=== PATIENT | female | born 1950 | race Caucasian/White ===

== ENCOUNTER 2017-07-22 01:37 | Emergency (ER) | payer MEDICAID ==
[~2017-07-22] VITALS: Ht 154.9 cm; Wt 64.4 kg
[~2017-07-22 01:37] MED LIST: ABREVA2 GM; ABREVA2 GM TOP; ACETAMINOPHEN325 M1 PO; ADULT LOW DOSE81 MG; ALAVERT10 MG; ARTHRITIS PAIN650 M2 PO; CLONIDINE PO; CYCLOBENZAPRINE10 MG; DESYREL50 MG PO; KEPPRA 500 MG500 M1 PO; L-LYSINE500 M1; LAMICTAL 25 MG25 M1 PO; MOM PO; MULTIVITAMINS PO; NAPROSYN500 MG PO; OMEPRAZOLE 20 M20 M1; PRIMIDONE50 MG PO; PRINZIDE 20-121 EACH PO; ROBITUSSIN15 MG/5 M1 PO; SIMVASTATIN40 MG; SIMVASTATIN40 MG PO; VICODIN 5-5001 EACH PO; VITCB500GO; ZONEGRAN 25 MG25 M1; ZONEGRAN100 MG; ZONEGRAN50 MG; ZONISAMIDE 100100 M1
[2017-07-22] MEDS ORDERED: COLACE100 MG (01:45)
[2017-07-22] MEDS ORDERED: MIRALAX17 GM (01:46)
[2017-07-22 05:46] VITALS: BP 123/57
== END 2017-07-22 05:49 | disposition home or self-care (01) ==
LOC: M.ERS 01:37
DX: S00.83XA Contusion of other part of head, initial encounter (principal); W18.39XA Other fall on same level, initial encounter; Y93.89 Activity, other specified; Y92.89 Other specified places as the place of occurrence of the external cause; Y99.8 Other external cause status

== ENCOUNTER 2019-08-06 10:08 | Inpatient (IN) | payer MEDICAID ==
[~2019-08-06] VITALS: Ht 165.1 cm; Wt 63.5 kg
[~2019-08-06 10:08] MED LIST changes: -ADULT LOW DOSE81 MG; +ADULT LOW DOSE81 MG PO; -ARTHRITIS PAIN650 M2 PO; +COLACE100 MG; -LAMICTAL 25 MG25 M1 PO; +LAMICTAL 25 MG25 MG PO; +MIRALAX17 GM PO; +TYLENOL325 MG PO
[2019-08-06 10:11] VITALS: BP 152/80
[2019-08-06 10:31] LABS: ABSOLUTE BASOPHILS 0.1 thou/uL (0.0-0.2); ABSOLUTE EOSINOPHILS 0.1 thou/uL (0.0-0.7); ABSOLUTE LYMPHOCYTES 1.6 thou/uL (0.8-5.3); ABSOLUTE MONOCYTES 0.6 thou/uL (0.0-1.2); BASOPHILS 0.8 %; HEMOGLOBIN 14.2 gm/dL (12.0-15.0); LYMPHOCYTES 19.1 %; MCH 31.1 pg (26.0-34.0); MCV 94.3 fL (80.0-100.0); MONOCYTES 6.7 %; MPV 8.5 fl. (7.2-11.1); NUCLEATED RBCS 0 /100WBC; PLATELET COUNT* 274 thou/uL (150-400); POLYS 72.4 %; RBC 4.56 mil/uL (4.20-5.00); RDW-CV 12.9 % (10.5-14.5); WBC 8.2 thou/uL (4.0-11.0)
[2019-08-06] MEDS ORDERED: ARICEPT10 M1 PO (10:39)
[2019-08-06] MEDS ORDERED: MELATONIN3 M1 PO (10:40)
[2019-08-06 10:41] LABS: CALCIUM 9.9 mg/dL (8.5-10.1); CREATININE 1.1 mg/dL (0.6-1.3); POTASSIUM 3.9 mmol/L (3.5-5.1)
[2019-08-06] MEDS ORDERED: NASA MIST SALIN75 ML NASAL (10:41)
[2019-08-06] MEDS ORDERED: ANTI-GAS180 MG PO (10:41)
[2019-08-06] MEDS ORDERED: L-LYSINE500 M1 TOP (10:42)
[2019-08-06 10:45] LABS: ALBUMIN 4.5 g/dL (3.4-5.0); TOTAL BILIRUBIN 0.3 mg/dL (<0.1-1.0)
[2019-08-06 10:52] LABS: APTT 22.6 Seconds (25.0-31.3)
[2019-08-06 11:13] LABS: MAGNESIUM 2.1 mg/dL (1.8-2.4); PHOSPHORUS* 3.8 mg/dL (2.5-4.9)
[2019-08-06 11:19] LABS: URINE BILIRUBIN NEGATIVE (Negative); URINE BLOOD NEGATIVE (Negative); URINE CLARITY CLEAR; URINE COLOR YELLOW; URINE GLUCOSE-RANDOM NEGATIVE (Negative); URINE KETONES NEGATIVE (Negative); URINE LEUKOCYTES-REFLEX NEGATIVE (Negative); URINE PROTEIN NEGATIVE (Negative); URINE SPECIFIC GRAVITY 1.015 (1.005-1.030); URINE UROBILINOGEN 0.2 E.U./dl (0.2-1.0)
[2019-08-06 11:22] LABS: URINE NITRITE-REFLEX POSITIVE (Negative)
[2019-08-06 11:26] LABS: AMP/METHAMP Negative (Negative); BACTERIA-REFLEX >30 Many /HPF (None Seen); BARBITURATES Negative (Negative); BENZODIAZEPINES Negative (Negative); COCAINE Negative (Negative); CRYSTALS None Seen /LPF (None Seen); HYALINE CASTS 4-10 Moderate /LPF (None Seen); METHADONE Negative (Negative); MUCUS 0-3 Light strn/LPF (None Seen); OPIATES Negative (Negative); PCP Negative (Negative); SQUAMOUS 0-3 Few /LPF (0-3); THC Negative (Negative); URINE RBC 0-2 Rare /HPF (0-2); URINE WBC-REFLEX 6-15 Few /HPF (0-5)
[2019-08-06 11:59] VITALS: BP 161/68
[2019-08-06] MEDS ORDERED: MILK OF MA400 MG/5 M PO (15:12)
[2019-08-06] MEDS ORDERED: NASACORT10.8 ML NARES (15:14)
[2019-08-06] MEDS ORDERED: ZONEGRAN100 MG PO (15:32)
[2019-08-06 16:00] VITALS: BP 170/69
[2019-08-06] MEDS ORDERED: ARTHRITIS PAIN650 M3 PO (16:27)
[2019-08-06] MEDS ORDERED: LEVETIRACETAM250 MG PO (16:29)
[2019-08-06] MEDS ORDERED: KEPPRA 500 MG500 MG PO (16:30)
[2019-08-06] MEDS ORDERED: LISINOPRIL20 MG PO (16:33)
[2019-08-06] MEDS ORDERED: SEROQUEL 25 MG25 M1 PO (16:41)
--- NOTE | 2019-08-06 19:00 | NUR ---
ASSUMED PT CARE FROM ER AROUND 1215. ASSESSMENT COMPLETED CHARTED. ABLE TO MAKE NEEDS KNOWN. PT RESTING IN BED MOST OF THE SHIFT. IV FLUIDS FINISHED AND IV ABT STARTED. NO C/O PAIN OR DISCOMFORT. REFUSED DINNER. SEIZURE PRECAUTIONS IN PLACE. WILL CONTINUE TO MONITOR.
[2019-08-06 20:00] VITALS: BP 145/68
[2019-08-07] VITALS: BP 140/44
[2019-08-07 04:00] VITALS: BP 143/62
--- NOTE | 2019-08-07 04:03 | NUR ---
ASSUMED PATIENT CARE AT 1900. ASSESSMENT COMPLETED CHARTED. PATIENT IS NSR ON THE MONITOR. FALL PRECAUTIONS IN PLACE FOR PATIENT SAFETY. HOURLY ROUNDING IN PLACE FOR PATIENT SAFETY. CLWR.
[2019-08-07 08:00] VITALS: BP 143/61
--- NOTE | 2019-08-07 11:52 | EKG ---
[place] [address] ELECTROCARDIOGRAM REPORT Name: ADRIANA LEWIS Room: [address] [place] .R.#: [id number] Admission: 08/06/19 Attend Phys: Agustín bourne Sa Discharge: Date of : 46 Date of Service: 08/06/19 [facility] Report #: [id number] THIS REPORT FOR: //name// [facility] ED Test Date: 2019-08-06 Test Time: 10:24:41 Pat Name: ADRIANA LEWIS Department: Room: [facility] Gender: F Topographical Drafter: MS : 1950 Requested By: Mark Landeros Order Number: [id number] MD: Johnny Hoang Measurements Intervals [place] Rate: 62 P: [place]: QRS: 1 QRSD: 97 T: 28 QT: 422 QTc: 429 Interpretive Statements Atrial fibrillation wandering baseline Compared to ECG 08/08/2010 09:51:48 Sinus rhythm no longer present Electronically Signed On 08-07-2019 11:50:45 CDT by Johnny Hoang [email or web address] <ELECTRONICALLY SIGNED> By: Johnny Hoang MD, [facility] 08/07/19 1150 1024 1024 Johnny Hoang MD, [facility] /EPI
[2019-08-07 12:00] VITALS: BP 136/57
[2019-08-07 17:06] VITALS: BP 134/67
[2019-08-07 20:00] VITALS: BP 143/69
--- NOTE | 2019-08-08 04:56 | NUR ---
ASSESSMENTS COMPLETED AT BEDSIDE, PLEASE REFER TO CHARTING TO DETAILS. MEDICATIONS ADMINISTERED PER MAR. PT HAD EPISODES TO AGITATION AND IMPULSIVE BEHAVOIR AT START OF SHIFT, RECIEVED NEW ORDERS FROM PHYSICIAN, PT FELL ASLEEP AND DID NOT REQUIRE PRN MEDICATION. HOURLY ROUNDING COMPLETED FOR SAFETY. BED ALRAM ON AND CALL LIGHT WITHIN REACH.
[2019-08-08 08:00] VITALS: BP 138/70
[2019-08-08 12:18] VITALS: BP 149/62
--- NOTE | 2019-08-08 13:01 | NUR ---
Pt lives at [facility] LTC. SW called and spoke with Francisca in admissions at [facility] and SW faxed referral/update information to [facility] in preparation for whenever pt is ready to dc. Pt dtr is contact and DPOA. SW to continue to follow to assist with safe dc planning. [facility] ph [phone]
[2019-08-08 16:00] VITALS: BP 134/56
--- NOTE | 2019-08-08 19:06 | NUR ---
ASSUMED CARE OF PT APPROX 0730. REASSESMENT COMPLETED CHARTED. MEDICATIONS GIVEN CHARTED. SIDE RAILS UP X4 FOR SEIZURE PRECAUTIONS. PTS MEDICATION DOSAGE ADJUSTED TOAY PER NEUROLOGY. PTS DAUGHTER MARIAELENA HOME MED AND MED VERIFIED BY [employer]. BED IN LOW POSITION AND CALL LIGHT WITHIN REACH. SAFTEY PRECAUTIONS UTILIZED.
[2019-08-08 20:00] VITALS: BP 135/63
--- NOTE | 2019-08-09 05:46 | NUR ---
ASSESSMENTS COMPLETED AT BEDSIDE, PLEASE REFER TO CHARTING TO DETAILS. MEDICATIONS ADMINISTERED PER MAR. PT HAD EPISODES TO AGITATION AND IMPULSIVE BEHAVOIR AT START OF SHIFT, TREATED WITH PRN MEDICATION. HOURLY ROUNDING COMPLETED FOR SAFETY, CALL LIGHT WITHIN REACH.
[2019-08-09 08:08] VITALS: BP 129/46
[2019-08-09 11:35] VITALS: BP 112/55
[2019-08-09 15:50] VITALS: BP 163/62
--- NOTE | 2019-08-09 17:12 | NUR ---
ASSUMED CARE OF PT AROUND 0730 THIS AM. REFER TO ASSESSMENT. PT UP TO CHAIR FOR ALL MEALS THIS SHIFT. AMBULATES WELL WITH STB/ ASSIST X1 TO BR AND AROUND FOREMAN WITH STAFF. LEONELA REMOVED THIS AM AND PT VOIDING WITHOUT DIFFICULTY. ANTICIPATE DC TO [facility] TOMORROW. NO OTHER CONCERNS AT THIS TIME. CLWR. WCTM.
[2019-08-09 20:00] VITALS: BP 141/63
[2019-08-10] VITALS: BP 156/58
[2019-08-10 04:00] VITALS: BP 134/56
[2019-08-10 07:00] VITALS: BP 109/48
--- NOTE | 2019-08-10 07:56 | NUR ---
PT A+O X 2. MORE LUCID PRIOR TO BED. PT WAS ABLE TO SLEEP THROUGH MOST OF SHIFT. SZ PRECAUTIONS MAINTAINED. SR ON MONITOR. CALL LIGHT IN REACH. HOURLY ROUNDING FOR SAFETY.
--- NOTE | 2019-08-10 08:09 | NUR ---
INITAL ASSESSMENT COMPLETED CHARTED. VSS. TRACING SR ON MONITOR. PT DENIES PAIN, CP, SOA, N/V/D. NO NEW CONCERNS AT THIS TIME. REFER TO COMPUTER CHARTING FOR FURTHER DETAILS. HOURLY ROUNDING AND FALL PRECAUTIONS IN PLACE FOR PT SAFETY. CLWR.
[2019-08-10 09:59] VITALS: BP 109/48
[2019-08-10] MEDS ORDERED: KEFLEX500 M1 PO (12:03)
[2019-08-10] MEDS ORDERED: MYSOLINE50 MG PO (12:03)
--- NOTE | 2019-08-10 12:12 | NUR ---
Pt discharging back to [facility] today, transport to garbage pick up man between 3-330pm. Faxed dc orders. Chart copied. Nurse report number is [phone]. Updated Dtr, dtr requested that CM faxed dc orders to Pt's neurology Dr Aryan Lynn, CM faxed.
--- NOTE | 2019-08-10 15:52 | NUR ---
PLEASE NOTE PT WAS DISCHARGED BACK TO LTC THIS DATE PRIOR TO P.T. EVAL AND TREAT BEING INITIATED.
--- NOTE | 2019-08-10 17:05 | NUR ---
PT. DISCHARGED PRIOR TO O.T. EVAL. PLEASE ORDER FURTHER O.T. SERVICES IF NEEDED.
== END 2019-08-10 15:00 | DRG 689 ==
LOC: M.ERS 10:08 → M.TBA-ER 11:07 → M.2W 11:07 → M.ERS 12:00 → M.2W 12:15
PROVIDERS: Family Medicine; ADMIT Family Medicine
DX: N39.0 Urinary tract infection, site not specified (principal); G92 Toxic encephalopathy; Z16.39 Resistance to other specified antimicrobial drug; I10 Essential (primary) hypertension; K21.9 Gastro-esophageal reflux disease without esophagitis; M81.0 Age-related osteoporosis without current pathological fracture; G30.9 Alzheimer's disease, unspecified; F02.80 Dementia in other diseases classified elsewhere, unspecified severity, without behavioral disturbance, psychotic disturbance, mood disturbance, and anxiety; G40.909 Epilepsy, unspecified, not intractable, without status epilepticus; M19.90 Unspecified osteoarthritis, unspecified site; E78.5 Hyperlipidemia, unspecified; G25.0 Essential tremor; B96.20 Unspecified Escherichia coli [E. coli] as the cause of diseases classified elsewhere; Z79.899 Other long term (current) drug therapy

== ENCOUNTER 2019-08-11 21:52 | Emergency (ER) | payer MEDICAID ==
[~2019-08-11] VITALS: Ht 157.5 cm; Wt 58.3 kg
[~2019-08-11 21:52] MED LIST changes: +ANTI-GAS180 MG PO; +ARICEPT10 M1 PO; +ARTHRITIS PAIN650 M3 PO; +KEFLEX500 M1 PO; +KEPPRA 500 MG500 MG PO; +L-LYSINE500 M1 TOP; +LEVETIRACETAM250 MG PO; +LISINOPRIL20 MG PO; +MELATONIN3 M1 PO; +MILK OF MA400 MG/5 M PO; +MYSOLINE50 MG PO; +NASA MIST SALIN75 ML NASAL; +NASACORT10.8 ML NARES; +SEROQUEL 25 MG25 M1 PO; +ZONEGRAN100 MG PO
[2019-08-12 01:02] VITALS: BP 150/62
== END 2019-08-12 01:05 | disposition home or self-care (01) ==
LOC: M.ERS 21:52
DX: S51.811A Laceration without foreign body of right forearm, initial encounter (principal); S00.03XA Contusion of scalp, initial encounter; S60.212A Contusion of left wrist, initial encounter; S50.12XA Contusion of left forearm, initial encounter; I10 Essential (primary) hypertension; K21.9 Gastro-esophageal reflux disease without esophagitis; W18.39XA Other fall on same level, initial encounter; Y93.89 Activity, other specified; Y92.89 Other specified places as the place of occurrence of the external cause; Y99.8 Other external cause status

== ENCOUNTER 2019-08-12 06:53 | Emergency (ER) | payer MEDICAID ==
[~2019-08-12] VITALS: Ht 157.5 cm; Wt 65.8 kg
[2019-08-12 07:51] LABS: ABSOLUTE EOSINOPHILS 0.1 thou/uL (0.0-0.7); ABSOLUTE LYMPHOCYTES 1.2 thou/uL (0.8-5.3); ABSOLUTE MONOCYTES 0.5 thou/uL (0.0-1.2); ABSOLUTE NEUTROPHILS 3.8 thou/uL (1.6-8.1); BASOPHILS 0.8 %; EOSINOPHILS 2.2 %; HEMATOCRIT 36.7 % (37.0-47.0); HEMOGLOBIN 12.5 gm/dL (12.0-15.0); LYMPHOCYTES 21.2 %; MCH 31.9 pg (26.0-34.0); MONOCYTES 9.6 %; MPV 9.1 fl. (7.2-11.1); NUCLEATED RBCS 0 /100WBC; PLATELET COUNT* 208 thou/uL (150-400); POLYS 66.2 %; RBC 3.91 mil/uL (4.20-5.00); RDW-CV 12.9 % (10.5-14.5); WBC 5.7 thou/uL (4.0-11.0)
[2019-08-12 08:01] LABS: CALCIUM 8.6 mg/dL (8.5-10.1); CREATININE 0.8 mg/dL (0.6-1.3); POTASSIUM 3.6 mmol/L (3.5-5.1)
[2019-08-12 08:11] LABS: ALBUMIN 3.7 g/dL (3.4-5.0); TOTAL BILIRUBIN 0.4 mg/dL (<0.1-1.0); TOTAL PROTEIN 6.8 g/dL (6.4-8.2)
[2019-08-12 09:48] VITALS: BP 128/65
--- NOTE | 2019-08-12 11:11 | EKG ---
[place] [address] ELECTROCARDIOGRAM REPORT Name: JOANNErickADRIANA David Room: [facility]#: [id number] Admission: 08/12/19 Attend Phys: Discharge: 08/12/19 Date of : 46 Date of Service: 08/12/19 0708 Report #: [id number] THIS REPORT FOR: //name// [facility] ED Test Date: 2019-08-12 Test Time: 07:08:45 Pat Name: ADRIANA LEWIS Department: Room: Gender: [employer] Decorator: : 1950 Requested By: Mark Landeros Order Number: [id number] MD: Moo Prater Measurements Intervals [place] Rate: 66 P: 25 VT: 149 QRS: 0 QRSD: 88 T: 44 QT: 414 QTc: 434 Interpretive Statements Sinus rhythm Compared to ECG 08/06/2019 10:24:41 Atrial fibrillation no longer present Electronically Signed On 08-12-2019 11:09:45 CDT by Moo Prater [email or web address] <ELECTRONICALLY SIGNED> By: Moo Prater MD, [facility] 08/12/19 1109 7 7 Moo Prater MD, FAC /EPI
== END 2019-08-12 09:49 | disposition home or self-care (01) ==
LOC: M.ERS 06:53
PROVIDERS: Family Medicine
DX: R56.9 Unspecified convulsions (principal); I10 Essential (primary) hypertension; K21.9 Gastro-esophageal reflux disease without esophagitis

== ENCOUNTER 2020-12-15 19:26 | Observation (INO) | payer MEDICAID ==
[~2020-12-15] VITALS: Ht 157.5 cm; Wt 63.4 kg
[2020-12-15 19:33] VITALS: BP 192/83
[2020-12-15] MEDS ORDERED: ANBESOL9 GM MUCOUS MEM (19:44)
[2020-12-15] MEDS ORDERED: OTOVEL 0.3%-0.1 EACH OPHTHALMIC (19:45)
[2020-12-15] MEDS ORDERED: BLINK TEARS15 ML OPHTHALMIC (19:45)
[2020-12-15] MEDS ORDERED: GERI-LANTA LIQ355 M1 PO (19:46)
[2020-12-15] MEDS ORDERED: ACULAR 0.5% EYE5 ML OPHTHALMIC (19:47)
[2020-12-15] MEDS ORDERED: KEPPRA100 MG/1 M PO ×2 (19:47→19:48)
[2020-12-15] MEDS ORDERED: HYDROCODON-ACE1 EAC7 PO (19:48)
[2020-12-15] MEDS ORDERED: PRED FORTE 1% EY5 M1 OPHTHALMIC (19:49)
[2020-12-15] MEDS ORDERED: SEROQUEL 25 MG25 M1 PO (19:49)
[2020-12-15 20:27] LABS: ABSOLUTE BASOPHILS 0.1 thou/uL (0.0-0.2); ABSOLUTE LYMPHOCYTES 1.6 thou/uL (0.8-5.3); ABSOLUTE MONOCYTES 0.6 thou/uL (0.0-1.2); ABSOLUTE NEUTROPHILS 10.9 thou/uL (1.6-8.1); BASOPHILS 0.5 %; EOSINOPHILS 0.3 %; HEMATOCRIT 38.1 % (37.0-47.0); HEMOGLOBIN 12.6 gm/dL (12.0-15.0); LYMPHOCYTES 12.2 %; MCH 29.4 pg (26.0-34.0); MCHC 33.1 g/dL (28.0-37.0); MCV 88.8 fL (80.0-100.0); MONOCYTES 4.4 %; MPV 8.3 fl. (7.2-11.1); NUCLEATED RBCS 0 /100WBC; PLATELET COUNT* 266 thou/uL (150-400); POLYS 82.6 %; RBC 4.29 mil/uL (4.20-5.00); RDW-CV 13.2 % (10.5-14.5); WBC 13.2 thou/uL (4.0-11.0)
[2020-12-15 20:35] LABS: CALCIUM 8.7 mg/dL (8.5-10.1); POTASSIUM 3.9 mmol/L (3.5-5.1)
[2020-12-15 20:43] LABS: APTT 23.1 Seconds (25.0-31.3); INR 0.9; TOTAL BILIRUBIN 0.3 mg/dL (<0.1-1.0); TOTAL PROTEIN 7.4 g/dL (6.4-8.2)
[2020-12-15 21:29] LABS: URINE BILIRUBIN NEGATIVE (Negative); URINE BLOOD NEGATIVE (Negative); URINE CLARITY CLEAR; URINE COLOR YELLOW; URINE GLUCOSE-RANDOM NEGATIVE (Negative); URINE KETONES NEGATIVE (Negative); URINE LEUKOCYTES-REFLEX NEGATIVE (Negative); URINE NITRITE-REFLEX NEGATIVE (Negative); URINE PROTEIN 2+ (Negative); URINE UROBILINOGEN 0.2 E.U./dl (0.2-1.0)
[2020-12-15 21:31] LABS: BACTERIA-REFLEX >30 Many /HPF (None Seen); CASTS None Seen /LPF (None Seen); CRYSTALS None Seen /LPF (None Seen); SQUAMOUS 4-10 Moderate /LPF (0-3); URINE RBC None Seen /HPF (0-2)
[2020-12-15 23:55] VITALS: BP 179/71
[2020-12-16 00:20] VITALS: BP 173/79
[2020-12-16 04:18] VITALS: BP 121/64
--- NOTE | 2020-12-16 05:59 | NUR ---
PT ADMITTED TO ROOM 229 DURING THIS SHIFT; ELEVATED BP, VSS OTHERWISE, ROOM AIR, UP SBA, SR. SHE IS ABLE TO COMMUNICATE HER NEEDS TO STAFF WITH MINOR DIFFICULTY; SHE IS A+O X 1-2 (SELF, SITUATION) AND CONFUSED. SHE HAS DENIED THE NEED FOR PAIN MEDICATION UP TO THIS TIME.
[2020-12-16 08:30] VITALS: BP 145/64
[2020-12-16 12:00] VITALS: BP 165/71
[2020-12-16 16:00] VITALS: BP 152/72
--- NOTE | 2020-12-16 19:05 | NUR ---
I ASSUMED CARE OF THE PATIENT AT 0700. SHE IS ALERT AND ORIENTED X1-2 AND IS UP WITH ASSIST OF 1 AND A WALKER TO THE BED AND CHAIR AND BATHROOM. REGULAR DIET IS RESUMED PER CARDIOLOGY. SHE USES THE BATHROOM OFTEN TO VOID. BED IS IN THE LOW LOCKED POSITION AND CALL LIGHT IS IN REACH. FAMILY WAS CONTACTED WITH AN UPDATE. . NEW IV WAS STARTED. WILL CONTINUE TO MONITOR.
[2020-12-16 22:44] VITALS: BP 171/80
[2020-12-17 01:00] VITALS: BP 165/72
[2020-12-17 03:53] LABS: HEMATOCRIT 33.6 % (37.0-47.0); HEMOGLOBIN 11.2 gm/dL (12.0-15.0); MCH 29.9 pg (26.0-34.0); MCHC 33.2 g/dL (28.0-37.0); MPV 8.4 fl. (7.2-11.1); RBC 3.73 mil/uL (4.20-5.00); RDW-CV 13.3 % (10.5-14.5); WBC 6.6 thou/uL (4.0-11.0)
[2020-12-17 04:37] LABS: CALCIUM 8.1 mg/dL (8.5-10.1); CREATININE 0.9 mg/dL (0.6-1.3); POTASSIUM 3.7 mmol/L (3.5-5.1)
[2020-12-17 05:09] VITALS: BP 134/68
--- NOTE | 2020-12-17 07:10 | NUR ---
CHANGE OF SHIFT REPORT GIVEN PATIENT SEEN AT BEDSIDE, IN BED ASLEEP ASSUMED PATIENT CARE
[2020-12-17 08:00] VITALS: BP 164/65
[2020-12-17] MEDS ORDERED: HYZAAR 50-12.51 EACH PO (09:18)
[2020-12-17] MEDS ORDERED: CEFDINIR300 MG PO (10:03)
[2020-12-17 11:51] VITALS: BP 155/68
--- NOTE | 2020-12-17 13:10 | NUR ---
CM ASSESSMENT: PT RESTING WITH EYES CLOSED. REVIEW OF PT'S CHART INFORMS THAT SHE RESIDES AT [facility]. CM SPOKE TO ADMISSIONS AT [facility] AND THEY CONFIRM THAT THE PT RESIDES IN LTC. CM SPOKE TO THE PT'S DTR/DPOA AND SHE CONFIRMS THE SAME AND THE PLAN FOR THE PT TO RETURN TO [facility] LTC AT D/C. PHYSICIAN INFORMS OF PLAN FOR THE PT TO D/C TODAY. CM FAXED PT'S CLINCIAL INFO AND TIME OF TRANSPORT IS PENDING AT THIS TIME. CM WILL REMAIN AVAILABLE TO ASSIST AND FOLLOW NEEDED.
--- NOTE | 2020-12-17 17:51 | NUR ---
patient discharged to [facility] via [facility] van iv and heart monitor removed personal belongings returned report given to chandler at [facility] discharge orders and chart copies sent
== END 2020-12-17 17:00 ==
LOC: M.ERS 19:26 → M.TBA-ER 22:32 → M.2W 22:32
PROVIDERS: Internal Medicine; Personal Emergency Response Attendant; ADMIT Internal Medicine; ATTEND Internal Medicine
DX: R00.1 Bradycardia, unspecified (principal); N39.0 Urinary tract infection, site not specified; Z20.822 Contact with and (suspected) exposure to COVID-19; R53.1 Weakness; I10 Essential (primary) hypertension; R55 Syncope and collapse; K21.9 Gastro-esophageal reflux disease without esophagitis; M81.0 Age-related osteoporosis without current pathological fracture; G30.9 Alzheimer's disease, unspecified; F02.80 Dementia in other diseases classified elsewhere, unspecified severity, without behavioral disturbance, psychotic disturbance, mood disturbance, and anxiety; Z79.82 Long term (current) use of aspirin; Z79.899 Other long term (current) drug therapy